=== PATIENT | male | born 1995 ===

== ENCOUNTER 2016-09-22 19:29 | Emergency (ER) | payer BC ==
[2016-09-22 19:41] VITALS: BP 141/81
--- NOTE | 2016-09-22 20:18 | UC ---
Throat Pain/Nasal Terry HPI - HPI Summary HPI Summary: sx started 09/20/16--sinus congestion/pressure/drainage, not much cough. sinus pressure the worst symptom. Also laryngitis. [ End ] - History of Current Complaint Chief Complaint: UCGeneralIllness Stated Complaint: SINUS Time Seen by Provider: 09/22/16 20:16 Hx Obtained From: Patient Onset/Duration: Gradual Onset Severity: Mild Cough: Sputum Appears Associated Signs & Symptoms: Positive: Sinus Discomfort, Nasal Discharge - Allergies/Home Medications Allergies/Adverse Reactions: Allergies Allergy/AdvReac Type Severity Reaction Status Date / Time No Known Allergies Allergy Verified 09/22/16 19:41 PMH/Surg Hx/FS Hx/Imm Hx Previously Healthy: Yes Endocrine History Of: Denies: Diabetes Cardiovascular History Of: Reports: Pacemaker/ICD GI/ History Of: Denies: Gastroesophageal Reflux Cancer History Of: Denies: Lung Cancer - Surgical History Surgical History: Yes Surgery Procedure, Year, and Place: nose secondary to football injury - Family History Known Family History: Positive: None - Social History Occupation: Employed Full-time Lives: With Family Alcohol Use: Weekly Alcohol Amount: 3 times a week Substance Use Type: None Smoking Status (MU): Current Some Day Smoker Type: Cigars - Immunization History Most Recent Influenza Vaccination: none Review of Systems Constitutional: Fatigue Skin: Negative Eyes: Negative ENT: Ear Ache, Nasal Discharge Respiratory: Negative Cardiovascular: Negative Gastrointestinal: Negative Genitourinary: Negative Motor: Negative Neurovascular: Negative Musculoskeletal: Negative Neurological: Negative Psychological: Negative All Other Systems Reviewed And Are Negative: Yes Physical Exam Triage Information Reviewed: Yes Appearance: Well-Appearing, No Pain Distress, Well-Nourished Vital Signs: Initial Vital Signs Temp 98.7 F 09/22/16 19:37 Pulse 67 09/22/16 19:37 Resp 17 09/22/16 19:37 BP 141/81 09/22/16 19:37 Pulse Ox 99 09/22/16 19:37 Vital Signs Reviewed: Yes Eye Exam: Normal ENT Exam: Normal ENT: Positive: Nasal congestion, Nasal drainage, TMs normal, Other: - b/l frontal sinus tenderness to palpation Dental Exam: Normal Neck exam: Normal Neck: Positive: 1 Respiratory Exam: Normal Cardiovascular Exam: Normal Musculoskeletal Exam: Normal Neurological Exam: Normal Psychological Exam: Normal Skin Exam: Normal Throat Pain/Nasal Course/Dx - Course Course Of Treatment: viral -- use netti pot, dayquil, flonase and if sx worsen in 1 week then can start antibiotics. he is aware of SE. He may grape picker script before he goes to [place] for trip next week - Differential Dx/Diagnosis Differential Diagnosis/HQI/PQRI: Pharyngitis, Sinusitis, Tonsillitis, URI Provider Diagnoses: sinusitis Discharge - Discharge Plan Condition: Good Disposition: HOME Prescriptions: Amoxicillin/Clavulanate TAB* [Augmentin TAB 875*] 875 mg PO BID #14 tab Patient Education Materials: Sinusitis (ED) Referrals: Non Staff,Doctor [Primary Care Provider] - 3 Days (If your symptoms do not improve ) Additional Instructions: Your Symptoms appear Viral at this time. Start using the NETTI POT (nasal saline rinses) in the night time and FLONASE in the AM for the next week. If your symptoms worsen over that time then go grape picker the antibiotics and start those as your symptoms represent bacterial sinusitis
== END 2016-09-22 20:43 | disposition home or self-care (01) ==
LOC: UCCORT 19:29
DX: J32.9 Chronic sinusitis, unspecified (principal); R03.0 Elevated blood-pressure reading, without diagnosis of hypertension; Z72.0 Tobacco use
CPT/HCPCS: 99202; G0463